=== PATIENT | female | born 1970 | race Caucasian/White ===

== ENCOUNTER 2019-06-13 09:55 | Emergency (ER) | payer MEDICARE ==
[2019-06-13 10:28] LABS: #Basophils 0.1 thou/uL (0.0-0.2); #Lymphocytes 0.7 thou/uL (1.20-3.40); #Monocytes 0.7 thou/uL (0.11-0.59); #Neutrophils 13.5 thou/uL (1.40-6.50); %Basophils 0.7 % (0.0-1.0); %Eosinophils 0.2 % (0.0-10.0); %Lymphocytes 4.4 % (21.0-51.0); %Monocytes 4.7 % (0.0-10.0); Hemoglobin 13.4 g/dL (12.0-16.0); Mean Corpuscular HGB CONC 31.3 g/dL (32.0-36.0); Mean Corpuscular Hemoglobin 27.3 pg (27.0-31.0); Mean Platelet Volume 6.6 fL (7.4-10.4); Platelet Count 255 thou/uL (130-400); RBC Distribution Width 13.3 % (11.5-14.5); Red Blood Cell (RBC) Count 4.92 mill/uL (4.20-5.40); White Blood Cell (WBC) Count 14.9 thou/uL (4.8-10.8)
[2019-06-13 10:42] LABS: ALT (SGPT) 37 U/L (8-55); AST (SGOT) 34 U/L (5-34); Albumin 3.4 g/dL (3.5-5.0); Alkaline Phosphatase 115 U/L (40-150); Anion Gap 28 mmol/L (10-20); BUN (Urea Nitrogen) 51 mg/dL (9.8-20.1); Bilirubin, Total 0.3 mg/dL (0.2-1.2); Calc. Creatinine Clearance 0 mL/min (70-130); Calcium 9.9 mg/dL (7.8-10.44); Carbon Dioxide 15 mmol/L (22-29); Chloride 88 mmol/L (98-107); Estimated GFR-MDRD 11; Globulin 2.8 g/dL (2.4-3.5); Potassium 5.5 mmol/L (3.5-5.1); Protein, Total 6.2 g/dL (6.0-8.3); Sodium 125 mmol/L (136-145)
[2019-06-13] MEDS ORDERED: Insulin Regular 300 UNITS/3 ML VIAL ONE (10:48)
[2019-06-13 10:58] LABS: Glucose 702 mg/dL (70-105)
--- NOTE | 2019-06-13 11:00 | RAD ---
XR Chest 1 View Portable HISTORY: Chest pain, dry mouth, weakness, reflux COMPARISON: 09/29/2014 FINDINGS: The heart size is normal. The lungs are well expanded without focal areas of consolidation, pneumothorax or pleural effusions. IMPRESSION: No radiographic evidence of acute cardiopulmonary process.
[2019-06-13 11:02] LABS: Phosphorus 6.9 mg/dL (2.3-4.7)
[2019-06-13 11:26] LABS: Base Excess-Venous -11.3 mmol/L (-2.0 to 3.0); Bicarbonate (HCO3v) 16.9 mmol/L (22.0-28.0); CO2 Tension (PvCO2) 45.6 mmHg (40.0-50.0); Calcium, Ionized 1.19 mmol/L (See Comments:); Chloride 96 mmol/L (98-107); Hemoglobin - Calc 13.3 g/dL (12.0-16.0); Potassium 6.1 mmol/L (3.5-5.1); Sodium 124 mmol/L (138-145); T. Carbon Dioxide 18.3 mmol/L (22.0-28.0); vO2 Saturation-calc 94.6 % (60.0-85.0)
== END 2019-06-13 11:59 | disposition short-term general hospital (02) ==
LOC: NAV ERS 09:55
DX: E10.10 Type 1 diabetes mellitus with ketoacidosis without coma (principal); J44.9 Chronic obstructive pulmonary disease, unspecified; I10 Essential (primary) hypertension; E10.40 Type 1 diabetes mellitus with diabetic neuropathy, unspecified; F03.90 Unspecified dementia, unspecified severity, without behavioral disturbance, psychotic disturbance, mood disturbance, and anxiety; G43.909 Migraine, unspecified, not intractable, without status migrainosus; F41.9 Anxiety disorder, unspecified; F17.210 Nicotine dependence, cigarettes, uncomplicated; Z79.899 Other long term (current) drug therapy
CPT/HCPCS: 36416; 71045; 80053; 82010; 82330; 82803; 83690; 83735; 84100; 84484; 85025; 93005; 94760; 96361; 96365; A4353; J1815

== ENCOUNTER 2019-09-05 17:25 | Emergency (ER) | payer MEDICARE ==
[2019-09-05] MEDS ORDERED: Ondansetron PF 4 MG/2 ML Vial ONE (18:12)
[2019-09-05] MEDS ORDERED: Pantoprazole 40 MG VIAL ONE (18:12)
[2019-09-05 18:21] LABS: Bilirubin Negative (Negative); Blood, Urine Trace (Negative); Clarity Slightly Cloudy (Clear); Glucose, Urine (Dipstick) 100 mg/dL (Negative); Leukocyte Small (Negative); Nitrite Negative (Negative); Protein, Urine (Dipstick) > or equal to 300 mg/dL (Neg-Trace); Urobilinogen 0.2 mg/dL (Less than 2)
[2019-09-05 18:22] LABS: Bacteria/HPF Rare-Few HPF (None Seen); RBC/HPF 0-3 HPF (0-3); Squamous Epithelial 0-3 HPF (0-3); WBC/HPF Greater than 50 HPF (0-3)
[2019-09-05] MEDS ORDERED: cloNIDine 0.1 MG TAB ONE (18:29)
[2019-09-05 18:31] LABS: #Basophils 0.1 thou/uL (0.0-0.2); #Eosinphils 0.3 thou/uL (0.0-0.7); #Lymphocytes 1.6 thou/uL (1.20-3.40); #Monocytes 0.8 thou/uL (0.11-0.59); %Basophils 1.9 % (0.0-1.0); %Eosinophils 3.7 % (0.0-10.0); %Lymphocytes 20.5 % (21.0-51.0); %Neutrophils 64.1 % (42.0-75.0); Hemoglobin 13.1 g/dL (12.0-16.0); Mean Corpuscular Hemoglobin 24.9 pg (27.0-31.0); Mean Corpuscular Volume 80.3 fL (78.0-98.0); Platelet Count 242 thou/uL (130-400); RBC Distribution Width 16.4 % (11.5-14.5); Red Blood Cell (RBC) Count 5.27 mill/uL (4.20-5.40); White Blood Cell (WBC) Count 7.8 thou/uL (4.8-10.8)
[2019-09-05 18:32] LABS: Anisocytosis SLIGHT = 6-15 cells (100X) (0-5/hpf); Hypochromia SLIGHT = 6-15 cells (100X) (0-5/hpf); MDiff Complete? YES; Platelet Morphology Comment Appears Adequate
[2019-09-05 18:38] LABS: ALT (SGPT) 24 U/L (8-55); AST (SGOT) 38 U/L (5-34); Albumin 3.6 g/dL (3.5-5.0); Alkaline Phosphatase 105 U/L (40-110); Anion Gap 18 mmol/L (10-20); BUN (Urea Nitrogen) 27 mg/dL (9.8-20.1); Bilirubin, Total 0.2 mg/dL (0.2-1.2); Calc. Creatinine Clearance 0 mL/min (70-130); Calcium 9.2 mg/dL (7.8-10.44); Carbon Dioxide 25 mmol/L (22-29); Chloride 100 mmol/L (98-107); Estimated GFR-MDRD 24; Glucose 150 mg/dL (70-105); Lipase 22 U/L (8-78); Potassium 4.5 mmol/L (3.5-5.1); Protein, Total 6.6 g/dL (6.0-8.3); Sodium 138 mmol/L (136-145)
[2019-09-05] MEDS ORDERED: Lidocaine 2% Jelly 5 ML TUBE ONE (18:39)
[2019-09-05] MEDS ORDERED: Lidocaine Viscous Sol 2% 15 ml UD Cup ONE (18:39)
[2019-09-05] MEDS ORDERED: Mag-Al Plus 1200 MG/1200 MG/120 MG/30 ML UDCUP ONE (18:39)
[2019-09-05] MEDS ORDERED: Sodium Chloride 0.9% 1,000 ML ONE (18:50)
--- NOTE | 2019-09-05 19:53 | CT ---
CT Abdomen Pelvis WO Con: 09/05/2019 6:52 PM HISTORY: Burning epigastric abdominal pain COMPARISON: 07/23/2016 TECHNIQUE: Multiple contiguous axial images were obtained and a CT of the abdomen and pelvis without IV contrast . Coronal and sagittal reformats were performed. FINDINGS: This examination is limited for the evaluation of solid organs and vascular structures due to the lac k of intravenous contrast. Lower Chest: within normal limits. Abdomen: Liver: within normal limits. Bile Ducts: Normal caliber. Gallbladder: Removed. Pancreas: within normal limits. Spleen: within normal limits. Adrenals: within normal limits. Kidneys: within normal limits. Pelvis: Reproductive Organs: No pelvic masses. Ureters: within normal limits. Bladder: within normal limits. Bowel: Normal caliber. Moderate stool is seen throughout the colon, unchanged. Mesenteric Lymph Nodes: No enlarged mesenteric lymph nodes. Peritoneum: No ascites or free air, no fluid collection. Vessels: Atherosclerotic calcifications in the aorta Retroperitoneum: within normal limits. Abdominal Wall: within normal limits. Bones: Postsurgical changes are seen in the lumbar spine and both sacroiliac joints. IMPRESSION: No evidence of acute intraabdominal or pelvic abnormality.
--- NOTE | 2019-09-05 19:53 | RAD ---
EXAM: Chest 2 views: HISTORY: Cough COMPARISON: 08/20/2019 FINDINGS: There is a normal-sized cardiomediastinal silhouette. There is no evidence of consolidation, mass, or pleural effusion. The bones are unremarkable. IMPRESSION: No evidence of acute cardiopulmonary disease
== END 2019-09-05 20:40 | disposition home or self-care (01) ==
LOC: NAV ERS 17:25
DX: K29.70 Gastritis, unspecified, without bleeding (principal); J42 Unspecified chronic bronchitis; I10 Essential (primary) hypertension; E11.40 Type 2 diabetes mellitus with diabetic neuropathy, unspecified; G43.909 Migraine, unspecified, not intractable, without status migrainosus; J44.9 Chronic obstructive pulmonary disease, unspecified; F17.210 Nicotine dependence, cigarettes, uncomplicated; Z79.899 Other long term (current) drug therapy; Z79.4 Long term (current) use of insulin
CPT/HCPCS: 71046; 74176; 80053; 81003; 81015; 83690; 84484; 85025; 93005; 96361; 96374; 96375; C9113; J2405; J7050

== ENCOUNTER 2019-12-22 23:37 | Emergency (ER) | payer MEDICARE ==
[2019-12-23] MEDS ORDERED: Ketorolac Tromethamine 30 MG/ML VIAL ONE (00:06)
[2019-12-23 00:35] LABS: #Basophils 0.1 thou/uL (0.0-0.2); #Eosinphils 0.3 thou/uL (0.0-0.7); #Lymphocytes 1.5 thou/uL (1.20-3.40); #Monocytes 0.9 thou/uL (0.11-0.59); #Neutrophils 6.9 thou/uL (1.40-6.50); %Eosinophils 2.9 % (0.0-10.0); %Lymphocytes 15.7 % (21.0-51.0); %Monocytes 9.2 % (0.0-10.0); %Neutrophils 71.2 % (42.0-75.0); Hemoglobin 10.5 g/dL (12.0-16.0); Hypochromia MODERATE=16-30 cells (100X) (0-5/hpf); MDiff Complete? YES; Mean Corpuscular Hemoglobin 24.6 pg (27.0-31.0); Mean Corpuscular Volume 82.1 fL (78.0-98.0); Mean Platelet Volume 6.2 fL (7.4-10.4); Platelet Count 298 thou/uL (130-400); Platelet Morphology Comment Appears Adequate; RBC Distribution Width 17.6 % (11.5-14.5); Red Blood Cell (RBC) Count 4.27 mill/uL (4.20-5.40); Spherocytes SLIGHT = 1-5 cells (100X) (None Seen); Stomatocytes SLIGHT = 2-5 cells (100X) (0-1/hpf); Tear Drops SLIGHT = 2-5 cells (100X) (0-1/hpf); White Blood Cell (WBC) Count 9.7 thou/uL (4.8-10.8)
[2019-12-23 00:41] LABS: ALT (SGPT) 78 U/L (8-55); AST (SGOT) 81 U/L (5-34); Albumin 2.9 g/dL (3.5-5.0); Alkaline Phosphatase 338 U/L (40-110); Anion Gap 14 mmol/L (10-20); BUN (Urea Nitrogen) 34 mg/dL (9.8-20.1); Bilirubin, Total 0.2 mg/dL (0.2-1.2); CK (CPK) 70 U/L (29-168); Calc. Creatinine Clearance 0 mL/min (70-130); Calcium 7.5 mg/dL (7.8-10.44); Carbon Dioxide 25 mmol/L (22-29); Chloride 104 mmol/L (98-107); Estimated GFR-MDRD 24; Globulin 2.6 g/dL (2.4-3.5); Glucose 469 mg/dL (70-105); Potassium 4.6 mmol/L (3.5-5.1); Protein, Total 5.5 g/dL (6.0-8.3); Sodium 138 mmol/L (136-145)
[2019-12-23] MEDS ORDERED: Sodium Chloride 0.9% 1,000 ML ONE (00:49)
[2019-12-23] MEDS ORDERED: Insulin Regular 300 UNITS/3 ML VIAL ONE (02:05)
--- NOTE | 2019-12-23 08:03 | RAD ---
LEFT RIB SERIES WITH A PA VIEW OF THE CHEST INDICATION: Fall with left-sided rib pain COMPARISON: None. FINDINGS: Chest radiograph: The lungs are clear. Heart size is normal. No pleural effusion or pneumothorax is d emonstrated. Left Ribs: No displaced left-sided rib fracture is demonstrated. IMPRESSION: No displaced left-sided rib fracture
== END 2019-12-23 03:05 | disposition home or self-care (01) ==
LOC: NAV ERS 23:37
DX: R55 Syncope and collapse (principal); E86.0 Dehydration; E11.65 Type 2 diabetes mellitus with hyperglycemia; S60.512A Abrasion of left hand, initial encounter; S20.212A Contusion of left front wall of thorax, initial encounter; S60.511A Abrasion of right hand, initial encounter; F03.90 Unspecified dementia, unspecified severity, without behavioral disturbance, psychotic disturbance, mood disturbance, and anxiety; G43.909 Migraine, unspecified, not intractable, without status migrainosus; J44.9 Chronic obstructive pulmonary disease, unspecified; F17.210 Nicotine dependence, cigarettes, uncomplicated; Z79.4 Long term (current) use of insulin; Z79.899 Other long term (current) drug therapy; W19.XXXA Unspecified fall, initial encounter
CPT/HCPCS: 36415; 36416; 80053; 82550; 84484; 85025; 93005; 96361; 96374; 96375; J1815; J1885; J7050